=== PATIENT | male | born 1965 | race Caucasian/White ===

== ENCOUNTER 2018-08-08 18:32 | Emergency (ER) | payer SELFPAY ==
[~2018-08-08] VITALS: Ht 175.3 cm; Wt 90.9 kg
[2018-08-08 18:40] VITALS: BP 138/78
[2018-08-09] MEDS ORDERED: BREX2TAB PO (09:45)
[2018-08-09] MEDS ORDERED: TRAZ-219 PO (09:45)
[2018-08-09] MEDS ORDERED: BREX1TAB PEG (09:45)
== END 2018-08-08 20:15 | disposition left against medical advice (07) ==
LOC: EMS 18:34
DX: R11.2 Nausea with vomiting, unspecified (principal); R19.7 Diarrhea, unspecified; Z53.21 Procedure and treatment not carried out due to patient leaving prior to being seen by health care provider

== ENCOUNTER 2018-08-09 09:36 | Emergency (ER) | payer SELFPAY ==
[~2018-08-09] VITALS: Ht 177.8 cm; Wt 90.9 kg
[2018-08-09 09:42] VITALS: BP 137/100
[2018-08-09] MEDS ORDERED: BREX1TAB PEG (09:45)
[2018-08-09] MEDS ORDERED: TRAZ-219 PO (09:45)
[2018-08-09] MEDS ORDERED: BREX2TAB PO (09:45)
== END 2018-08-09 12:36 | disposition left against medical advice (07) ==
LOC: EMS 09:41
DX: R11.2 Nausea with vomiting, unspecified (principal); Z53.21 Procedure and treatment not carried out due to patient leaving prior to being seen by health care provider

== ENCOUNTER 2018-08-25 11:30 | Inpatient (IN) | payer MEDICAID ==
[2018-08-25] VITALS (9 sets, daily range): BP systolic 103–147; BP diastolic 70–93
[~2018-08-25] VITALS: Ht 175.3 cm; Wt 89.6 kg
[~2018-08-25 11:30] MED LIST: BREX1TAB PEG; BREX2TAB PO; TRAZ-219 PO
[2018-08-25] MEDS ORDERED: TRIA10PO3 MC (13:17)
[2018-08-25] MEDS ORDERED: FOLI1 PO (13:17)
[2018-08-25] MEDS ORDERED: MULT-1192 PO (13:17)
[2018-08-25] MEDS: ChlordiazePOXIDE HCL 25 MG CAPSULE PO PRN (21:18)
[2018-08-26] VITALS (8 sets, daily range): BP systolic 118–148; BP diastolic 78–98
[2018-08-26] MEDS: ChlordiazePOXIDE HCL 25 MG CAPSULE PO PRN ×2 (00:08→06:25)
[2018-08-26] MEDS ORDERED: ChlordiazePOXIDE HCL 25 MG CAPSULE PO PRN (07:00)
[2018-08-26] MEDS: CITALOPRAM HYDROBROMIDE 20 MG TABLET PO SCH (09:01)
[2018-08-26] MEDS: DIVALPROEX SODIUM 500 MG DR TABLET PO SCH ×2 (09:01→16:27)
[2018-08-26] MEDS: RisperiDONE 0.5 MG TABLET PO SCH ×2 (09:02→16:28)
[2018-08-26] MEDS: ChlordiazePOXIDE HCL 25 MG CAPSULE PO SCH ×4 (09:02→20:30)
[2018-08-26] MEDS ORDERED: CloNIDine HCL 0.1 MG TABLET PO PRN (19:00)
[2018-08-26] MEDS ORDERED: ONDANSETRON HCL 4 MG TABLET PO PRN (19:00)
[2018-08-26] MEDS ORDERED: PETROLATUM,WHITE 71 GM JELLY TP PRN (19:00)
[2018-08-26] MEDS ORDERED: MAG HYDROX/AL HYDROX/SIMETH ES 30 ML SUSPENSION UDCUP PO PRN (19:00)
[2018-08-26] MEDS ORDERED: IBUPROFEN 600 MG TABLET PO PRN (19:00)
[2018-08-26] MEDS ORDERED: MAGNESIUM HYDROXIDE SUSPENSION 30 ML UDCUP PO PRN (19:00)
[2018-08-26] MEDS ORDERED: BENZOCAINE/MENTHOL LOZENGE MM PRN (19:00)
[2018-08-26] MEDS ORDERED: ALBUTEROL SULFATE HFA 90 MCG/PUFF 8 GM INHALER IH PRN (19:00)
[2018-08-26] MEDS ORDERED: BACITRACIN 28.4 GM OINTMENT TP PRN (19:00)
[2018-08-26] MEDS ORDERED: LOPERAMIDE HCL 2 MG CAPSULE PO PRN (19:00)
[2018-08-26] MEDS ORDERED: ACETAMINOPHEN 325 MG TABLET PO PRN (19:00)
[2018-08-26] MEDS ORDERED: OMEPRAZOLE 20 MG CAPSULE PO PRN (19:00)
[2018-08-26] MEDS ORDERED: DOCUSATE SODIUM 100 MG CAPSULE PO PRN (19:00)
[2018-08-27 03:58] VITALS: BP 138/80
[2018-08-27 06:32] VITALS: BP 133/78
[2018-08-27 08:00] VITALS: BP 123/86
[2018-08-27 08:14] LABS: BASOPHILS % (AUTO) 0.9 % (0.0-2.0); EOSINOPHILS % (AUTO) 3.1 % (1.0-6.0); HEMATOCRIT 43.5 % (41-53); HEMOGLOBIN 15.5 g/dL (13.5-17.5); LYMPHOCYTES # (AUTO) 1.5 K/uL (1.0-4.8); LYMPHOCYTES % (AUTO) 27.9 % (22.0-44.0); MEAN CORPUSCULAR HEMOGLOBIN 33.6 pg (26.0-34.0); MEAN CORPUSCULAR HGB CONC 35.5 G/dL (31.0-37.0); MEAN CORPUSCULAR VOLUME 95 fL (80-100); MONOCYTES # (AUTO) 0.6 K/uL (0.1-1.0); MONOCYTES % (AUTO) 11.8 % (2.0-9.0); NEUTROPHILS % (AUTO) 56.3 % (40.0-70.0); PLATELET COUNT (AUTO) 185 K/uL (150-450)
[2018-08-27] MEDS: CITALOPRAM HYDROBROMIDE 20 MG TABLET PO SCH (08:22)
[2018-08-27] MEDS: ChlordiazePOXIDE HCL 25 MG CAPSULE PO SCH ×4 (08:22→20:34)
[2018-08-27] MEDS: DIVALPROEX SODIUM 500 MG DR TABLET PO SCH ×2 (08:22→16:15)
[2018-08-27] MEDS: RisperiDONE 0.5 MG TABLET PO SCH ×2 (08:22→16:15)
[2018-08-27 08:26] LABS: HEMOGLOBIN A1C 5.4 % (4.5-6.2)
[2018-08-27 08:39] VITALS: BP 123/86
[2018-08-27 09:20] LABS: ALANINE AMINOTRANSFERASE 84 U/L (12-78); ALBUMIN 3.4 g/dL (3.4-5.0); ALKALINE PHOSPHATASE 84 U/L (46-116); ANION GAP 5 mmol/L (8-16); ASPARTATE AMINOTRANSFERASE 124 U/L (15-37); BILIRUBIN,TOTAL 0.7 mg/dL (0.1-1.0); CALCIUM, TOTAL 8.6 mg/dL (8.8-10.5); CARBON DIOXIDE 31 mmol/L (22-29); CHLORIDE 104 mmol/L (98-107); CHOL/HDL RATIO 1.6 (4.2-7.3); CHOLESTEROL 228 mg/dL (131-200); CREATININE 0.84 mg/dL (0.60-1.30); FREE T4 (FREE THYROXINE) 0.71 ng/dL (0.76-1.46); GLOMERULAR FILTR. RATE CALC > 60 mL/min (>60); GLUCOSE,RANDOM 117 mg/dL (70-110); HDL CHOLESTEROL 145 mg/dL (40-60); LDL CHOL (CALC.) 71 mg/dL (0-130); SODIUM SERUM 140 mmol/L (136-145); THYROID STIMULATING HORMONE 0.96 uIU/mL (0.36-3.74); TOTAL PROTEIN, SERUM 6.7 g/dL (6.4-8.2); TRIGLYCERIDES 61 mg/dL (15-150); UREA NITROGEN, BLOOD 8 mg/dL (7-18)
[2018-08-27 16:00] VITALS: BP 125/87
[2018-08-27 16:13] VITALS: BP 128/78
[2018-08-28 06:29] VITALS: BP 140/99
[2018-08-28 06:31] VITALS: BP 140/99
[2018-08-28] MEDS ORDERED: ChlordiazePOXIDE HCL 10 MG CAPSULE PO PRN (07:00)
[2018-08-28 08:00] VITALS: BP 129/72
[2018-08-28] MEDS: ChlordiazePOXIDE HCL 10 MG CAPSULE PO SCH ×4 (08:57→20:40)
[2018-08-28] MEDS: CITALOPRAM HYDROBROMIDE 20 MG TABLET PO SCH (08:57)
[2018-08-28] MEDS: DIVALPROEX SODIUM 500 MG DR TABLET PO SCH ×2 (08:57→16:30)
[2018-08-28] MEDS: RisperiDONE 0.5 MG TABLET PO SCH ×2 (08:57→16:30)
[2018-08-28 09:25] VITALS: BP 129/72
[2018-08-28 16:29] VITALS: BP 107/80
[2018-08-28 17:26] VITALS: BP 107/80
[2018-08-29 05:18] VITALS: BP 119/86
[2018-08-29 05:20] VITALS: BP 119/86
[2018-08-29 08:31] VITALS: BP 123/85
[2018-08-29] MEDS: DIVALPROEX SODIUM 500 MG DR TABLET PO SCH (08:43)
[2018-08-29] MEDS: RisperiDONE 0.5 MG TABLET PO SCH (08:44)
[2018-08-29] MEDS: CITALOPRAM HYDROBROMIDE 20 MG TABLET PO SCH (08:44)
[2018-08-29] MEDS: ChlordiazePOXIDE HCL 10 MG CAPSULE PO PRN ×2 (09:00→13:03)
[2018-08-29 12:03] VITALS: BP 123/86
[2018-08-29] MEDS ORDERED: CITA-106 PO (14:14)
[2018-08-29] MEDS ORDERED: RISP.5 PO (14:14)
[2018-08-29] MEDS ORDERED: DIVA-78 PO (14:14)
== END 2018-08-29 15:20 | disposition home or self-care (01) | DRG 754 ==
LOC: B2S 12:16
PROVIDERS: ADMIT Psychiatry & Neurology Psychiatry; ATTEND Psychiatry & Neurology Psychiatry
DX: F32.9 Major depressive disorder, single episode, unspecified (principal); R45.851 Suicidal ideations; E78.5 Hyperlipidemia, unspecified; F10.10 Alcohol abuse, uncomplicated; F41.9 Anxiety disorder, unspecified; G47.00 Insomnia, unspecified; K59.00 Constipation, unspecified; L30.9 Dermatitis, unspecified
CPT/HCPCS: 83036; 84439; 84443